=== PATIENT | female | born 1990 | race Caucasian/White ===

== ENCOUNTER 2022-05-19 18:09 | Emergency (ER) | payer MEDICAID ==
[~2022-05-19] VITALS: Ht 154.9 cm; Wt 79.8 kg
[2022-05-19 18:23] VITALS: BP 121/78
--- NOTE | 2022-05-19 19:05 | NUR ---
AMBULATED TO BED 9
--- NOTE | 2022-05-19 21:02 | NUR ---
ER AT BEDSIDE TO US
[2022-05-19] MEDS ORDERED: CLIN300C2 PO (21:05)
[2022-05-19] MEDS ORDERED: IBUP-2213 PO (21:05)
--- NOTE | 2022-05-19 21:30 | NUR ---
Patient discharged. Written and verbal after care instructions given and explained about cellulitis. Patient alert, oriented and verbalized understanding of instructions. Ambulatory with steady gait. All questions addressed prior to discharge. ID band removed. Patient advised to follow up with PMD. Rx of CLEOCIN HCL AND IBUPROFEN given. Patient educated on indication of medication including possible reaction and side effects. Opportunity to ask questions provided and answered.
== END 2022-05-19 21:30 | disposition home or self-care (01) ==
LOC: MED 18:09
DX: O86.11 Cervicitis following delivery (principal); Z88.1 Allergy status to other antibiotic agents; Z79.899 Other long term (current) drug therapy; Z98.890 Other specified postprocedural states
CPT/HCPCS: 99283